=== PATIENT | male | born 1990 | race Caucasian/White ===

== ENCOUNTER → 2022-02-27 | Outpatient (CLI) | payer SELFPAY ==
--- NOTE | 2022-02-27 09:39 | Diagnostic Imaging Report ---
INDICATION: Left foot pain bottom of the heel. No known injuries. EXAMINAtion: Left foot 02/27/2022 FINDINGS: 3 views of the foot. There is a punctate hyperdensity along the plantar soft tissues of the forefoot. This measures approximately 2 mm in size. It overlies the proximal 3rd metatarsal level. No underlying fractures or dislocations appreciated. Hallux valgus deformity with minimal narrowing at the 1st metatarsophalangeal joint space is seen. There is plantar calcaneal spurring. IMPRESSION: 1. Small foreign body within the soft tissues of the plantar aspect of the forefoot. This is age indeterminate. 2. Plantar calcaneal spurring with other chronic findings as above. Dictated by: Dictated on workstation # [id number]
== END ==
LOC: RAD FS 09:14
PROVIDERS: ATTEND Nurse Practitioner Family
DX: M77.32 Calcaneal spur, left foot (principal); M20.12 Hallux valgus (acquired), left foot; M79.5 Residual foreign body in soft tissue
CPT/HCPCS: 73630